=== PATIENT | male | born 1995 | race African-American/Black ===

== ENCOUNTER 2018-09-28 20:00 | Emergency (ER) | payer BC, SELFPAY ==
[2018-09-28] MEDS ORDERED: LIDOCAINE 1% MPF 5 ML VIAL ONE (21:17)
--- NOTE | 2018-09-28 22:16 | ER ---
Nurse's Notes [facility] Name: Bakari Delgado Age: 22 yrs Sex: Male : 1995 Arrival Date: 09/28/2018 Time: 20:24 Bed 11 Private MD: Diagnosis: Cutaneous abscess of face Presentation: 09/28 20:35 Presenting complaint: Patient states: he woke up with swelling to his left cheekbone bb this morning which is painful and getting worse. Transition of care: patient was not received from another setting of care. Onset of symptoms was September 28, 2018. Risk Assessment: Do you want to hurt yourself or someone else? Patient reports no desire to harm self or others. Initial Sepsis Screen: Does the patient meet any 2 criteria? No. Patient's initial sepsis screen is negative. Does the patient have a suspected source of infection? No. Patient's initial sepsis screen is negative. Care prior to arrival: None. 20:35 Method Of Arrival: Ambulatory bb 20:35 Acuity: CHATO 4 bb Historical: - Allergies: 20:36 Tree Nuts; bb 20:36 NKDA; bb - Home Meds: 20:36 None [Active]; bb - PMHx: 20:36 Asthma; bb - PSHx: 20:36 None; bb - Immunization history:: Adult Immunizations up to date. - Social history:: Smoking status: Patient uses tobacco products, smokes one-half pack cigarettes per day, Patient uses alcohol, occasionally. Patient/guardian denies using street drugs. - Ebola Screening: : No symptoms or risks identified at this time. Screenin:46 Abuse screen: Denies threats or abuse. Denies injuries from another. Nutritional rv screening: No deficits noted. Tuberculosis screening: No symptoms or risk factors identified. Fall Risk None identified. Assessment: 20:45 General: Appears in no apparent distress. comfortable, Behavior is calm, cooperative. rv Pain: Complains of pain in face. Neuro: Level of Consciousness is awake, alert, obeys commands, Oriented to person, place, time, situation. Cardiovascular: Capillary refill < 3 seconds. Respiratory: Airway is patent. GI: No signs and/or symptoms were reported involving the gastrointestinal system. : No signs and/or symptoms were reported regarding the genitourinary system. EENT: No signs and/or symptoms were reported regarding the EENT system. Derm: Skin is intact. Derm: Musculoskeletal: No signs and/or symptoms reported regarding the musculoskeletal system. Musculoskeletal: Swelling present in left congregational and left zygomatic area. Vital Signs: 20:36 BP 125 / 75; Pulse 83; Resp 16 S; Temp 98.9(O); Pulse Ox 98% on R/A; Weight 61.23 kg bb (R); Height 6 ft. 2 in. (187.96 cm) (R); Pain 5/10; 20:36 Body Mass Index 17.33 (61.23 kg, 187.96 cm) ED Course: 20:24 Patient arrived in ED. es 20:36 Triage completed. bb 20:36 Arm band placed on Patient placed in an exam room, on a stretcher, on pulse oximetry. bb 20:38 Heladio Lopez PA is PHCP. jr8 20:38 Abhishek Knox MD is Attending Physician. jr8 20:46 Patient has correct armband on for positive identification. Bed in low position. Call rv light in reach. Side rails up X 1. Pulse ox on. NIBP on. 22:12 No provider procedures requiring assistance completed. Assist provider with I \T\ D: of rv an abscess on left side of the face Set up I\T\D tray. Performed by Heladio HERNANDEZ Culture sent to lab. Dressing with 4X4s, tape Patient tolerated well. Patient did not have IV access during this emergency room visit. Administered Medications: No medications were administered Outcome: 22:15 Discharge ordered by . birdie 22:19 Discharged to home ambulatory. rv 22:19 Condition: good 22:19 Discharge instructions given to patient, family, Instructed on discharge instructions, follow up and referral plans. medication usage, wound care, Demonstrated understanding of instructions, follow-up care, medications, wound care, Prescriptions given X 1. 22:20 Patient left the ED. rv Signatures: Shauna Montoya Brenda, RN RN bb Heladio Lopez PA PA jr8 Natanael Villanueva RN RN rv
--- NOTE | 2018-09-28 22:16 | EDPHYS ---
Physician Documentation [facility] Name: Bakari Delgado Age: 22 yrs Sex: Male : 1995 Arrival Date: 09/28/2018 Time: 20:24 Bed 11 Private MD: ED Physician Abhishek Knox HPI: 09/28 22:02 This 22 yrs old Black Male presents to ER via Ambulatory with complaints of Facial jr8 swelling possible bite. 22:02 the patient presents with a swollen area of the left zygomatic area. Description: The jr8 affected area is small, localized, well demarcated, erythematous, pointed, swollen, tense. Onset: The symptoms/episode began/occurred acutely, today. Possible cause(s): unknown. Associated signs and symptoms: The patient has no apparent associated signs or symptoms. Modifying factors: the symptoms are alleviated by nothing, the symptoms are aggravated by pressure, squeezing the lesion and expressing the contents, touching. Severity of symptoms: At their worst the symptoms were mild, in the emergency department the symptoms are unchanged. The patient has not experienced similar symptoms in the past. The patient has not recently seen a physician. Historical: - Allergies: 20:36 Tree Nuts; bb 20:36 NKDA; bb - Home Meds: 20:36 None [Active]; bb - PMHx: 20:36 Asthma; bb - PSHx: 20:36 None; bb - Immunization history:: Adult Immunizations up to date. - Social history:: Smoking status: Patient uses tobacco products, smokes one-half pack cigarettes per day, Patient uses alcohol, occasionally. Patient/guardian denies using street drugs. - Ebola Screening: : No symptoms or risks identified at this time. ROS: 22:02 Eyes: Negative for injury, pain, redness, and discharge, ENT: Negative for injury, jr8 pain, and discharge, Neck: Negative for injury, pain, and swelling, Cardiovascular: Negative for chest pain, palpitations, and edema, Respiratory: Negative for shortness of breath, cough, wheezing, and pleuritic chest pain, Abdomen/GI: Negative for abdominal pain, nausea, vomiting, diarrhea, and constipation, Back: Negative for injury and pain, MS/Extremity: Negative for injury and deformity, Neuro: Negative for headache, weakness, numbness, tingling, and seizure. 22:02 Skin: Positive for abscess, of the left zygomatic area. Exam: 22:02 Head/Face: Normocephalic, atraumatic. Eyes: Pupils equal round and reactive to light, jr8 extra-ocular motions intact. Lids and lashes normal. Conjunctiva and sclera are non-icteric and not injected. Cornea within normal limits. Periorbital areas with no swelling, redness, or edema. ENT: Nares patent. No nasal discharge, no septal abnormalities noted. Tympanic membranes are normal and external auditory canals are clear. Oropharynx with no redness, swelling, or masses, exudates, or evidence of obstruction, uvula midline. Mucous membranes moist. Neck: Trachea midline, no thyromegaly or masses palpated, and no cervical lymphadenopathy. Supple, full range of motion without nuchal rigidity, or vertebral point tenderness. No Meningismus. Cardiovascular: Regular rate and rhythm with a normal S1 and S2. No gallops, murmurs, or rubs. Normal PMI, no JVD. No pulse deficits. Respiratory: Lungs have equal breath sounds bilaterally, clear to auscultation and percussion. No rales, rhonchi or wheezes noted. No increased work of breathing, no retractions or nasal flaring. Abdomen/GI: Soft, non-tender, with normal bowel sounds. No distension or tympany. No guarding or rebound. No evidence of tenderness throughout. Back: No spinal tenderness. No costovertebral tenderness. Full range of motion. MS/ Extremity: Pulses equal, no cyanosis. Neurovascular intact. Full, normal range of motion. Neuro: Awake and alert, GCS 15, oriented to person, place, time, and situation. Cranial nerves II-XII grossly intact. Motor strength 5/5 in all extremities. Sensory grossly intact. Cerebellar exam normal. Normal gait. 22:02 Skin: abscess, that is small, approximately 1.5 cm(s), of the left zygomatic area, with fluctuance, with pointing, cellulitis, is not appreciated. Vital Signs: 20:36 BP 125 / 75; Pulse 83; Resp 16 S; Temp 98.9(O); Pulse Ox 98% on R/A; Weight 61.23 kg bb (R); Height 6 ft. 2 in. (187.96 cm) (R); Pain 5/10; 20:36 Body Mass Index 17.33 (61.23 kg, 187.96 cm) bb Procedures: 22:02 I \T\ D: Incision and drainage was performed for an abscess of the left zygomatic area jr8 Prepped with Betadine, Anesthetized with 1 ml's 1% Lidocaine. Incised with #11 blade. Drained small amount purulent fluid. bloody fluid. Loculations removed. Cultures obtained. Abscess cavity explored. Packed with sterile gauze, Dressing: sterile 4x4 gauze, the patient tolerated the procedure well. MDM: 20:38 Patient medically screened. jr8 22:13 Data reviewed: vital signs, nurses notes, lab test result(s), and as a result, I will jr8 discharge patient. Data interpreted: Pulse oximetry: on room air is 98 %. Interpretation: normal. Counseling: I had a detailed discussion with the patient and/or guardian regarding: the historical points, exam findings, and any diagnostic results supporting the discharge/admit diagnosis, lab results, the need for outpatient follow up, a family practitioner, to return to the emergency department if symptoms worsen or persist or if there are any questions or concerns that arise at home. 09/28 22:07 Order name: Wound Culture jr8 09/28 21:03 Order name: I\T\D Setup; Complete Time: 21:04 jr8 Administered Medications: No medications were administered Disposition: 09/29 07:07 Co-signature as Attending Physician, Abhishek Knox MD I agree with the assessment and 4 plan of care. Disposition: 09/28/18 22:15 Discharged to Home. Impression: Cutaneous abscess of face. - Condition is Stable. - Discharge Instructions: Skin Abscess, Incision and Drainage. - Prescriptions for Bactrim DS 800- 160 mg Oral Tablet - take 1 tablet by ORAL route every 12 hours for 10 days; 20 tablet. - Medication Reconciliation Form, Thank You Letter, Antibiotic Education, Prescription Opioid Use form. - Follow up: Private Physician; When: 48 Hours; Reason: Wound Recheck, Recheck today's complaints, Continuance of care, Re-evaluation by your physician. - Problem is new. - Symptoms have improved. Signatures: Dispatcher [employer] EDSusy Prescott RN RN Heladio Rose PA PA 8 Abhishek Knox MD MD tw4 Natanael Villanueva, RN RN rv Corrections: (The following items were deleted from the chart) 09/28 22:20 22:15 09/28/2018 22:15 Discharged to Home. Impression: Cutaneous abscess of face. rv Condition is Stable. Forms are Medication Reconciliation Form, Thank You Letter, Antibiotic Education, Prescription Opioid Use. Follow up: Private Physician; When: 48 Hours; Reason: Wound Recheck, Recheck today's complaints, Continuance of care, Re-evaluation by your physician. Problem is new. Symptoms have improved. jr8
== END 2018-09-28 22:20 | disposition home or self-care (01) ==
LOC: ER 20:00
PROC: 0H91XZZ Drainage of Face Skin, External Approach (ICD-10-PCS; principal; 2018-09-28)
DX: L02.01 Cutaneous abscess of face (principal); J45.909 Unspecified asthma, uncomplicated; F17.210 Nicotine dependence, cigarettes, uncomplicated
CPT/HCPCS: 87070; 87205; 99284

== ENCOUNTER 2018-10-02 16:11 | Emergency (ER) | payer BC ==
--- NOTE | 2018-10-02 17:52 | ER ---
Nurse's Notes [facility] Name: Bakari Delgado Age: 22 yrs Sex: Male : 1995 Arrival Date: 10/02/2018 Time: 16:13 Bed 12 Private MD: Diagnosis: Encounter for wound check.;Left eye healing wound Presentation: 10/02 16:26 Presenting complaint: Patient states: i have an abscess on L side of the face which hj they had an incision last Monday; i just want to have a follow up check up; denies fever and chills; no discharges on the incision site; looks dry and intact;. Transition of care: patient was not received from another setting of care. Onset of symptoms was October 02, 2018. Risk Assessment: Do you want to hurt yourself or someone else? Patient reports no desire to harm self or others. Initial Sepsis Screen: Does the patient meet any 2 criteria? No. Patient's initial sepsis screen is negative. Does the patient have a suspected source of infection? No. Patient's initial sepsis screen is negative. Care prior to arrival: None. 16:26 Method Of Arrival: Ambulatory 16:26 Acuity: CHATO 4 hj Triage Assessment: 16:28 General: Appears in no apparent distress. uncomfortable, Behavior is calm, cooperative, hj appropriate for age. Pain: Denies pain. Historical: - Allergies: 16:28 NKDA; hj - Home Meds: 16:28 None [Active]; hj - PMHx: 16:28 Asthma; hj - PSHx: 16:28 None; hj - Immunization history:: Adult Immunizations up to date. - Social history:: Smoking status: Patient uses tobacco products, Patient uses alcohol. - Ebola Screening: : Patient negative for fever greater than or equal to 101.5 degrees Fahrenheit, and additional compatible Ebola Virus Disease symptoms Patient denies exposure to infectious person Patient denies travel to an Ebola-affected area in the 21 days before illness onset. Screenin:28 Abuse screen: Denies threats or abuse. Denies injuries from another. Nutritional hj screening: No deficits noted. Tuberculosis screening: No symptoms or risk factors identified. Fall Risk None identified. Assessment: 17:30 General: Appears in no apparent distress. Behavior is calm. Neuro: Level of iw Consciousness is awake, alert, obeys commands, Moves all extremities. Cardiovascular: Patient's skin is warm and dry. Respiratory: Respiratory effort is even, unlabored, Respiratory pattern is regular. Derm: Skin is intact, is healthy with good turgor. Musculoskeletal: Range of motion: intact in all extremities. Vital Signs: 16:29 BP 108 / 58; Pulse 99; Resp 18; Temp 97.5(O); Pulse Ox 98% on R/A; Weight 61.69 kg; hj Height 6 ft. 2 in. (187.96 cm); Pain 0/10; 16:29 Body Mass Index 17.46 (61.69 kg, 187.96 cm) ED Course: 16:13 Patient arrived in ED. as 16:28 Triage completed. hj 16:29 Arm band placed on right wrist. hj 16:29 Patient has correct armband on for positive identification. Bed in low position. Call hj light in reach. Side rails up X 1. 16:42 Sadie Lin RN is Primary Nurse. iw 16:43 Maurice Orr MD is Attending Physician. ps1 18:59 No provider procedures requiring assistance completed. Patient did not have IV access iw during this emergency room visit. Administered Medications: No medications were administered Outcome: 17:51 Discharge ordered by . ps1 17:59 Discharged to home ambulatory. iw 17:59 Condition: good 17:59 Discharge instructions given to patient, Instructed on discharge instructions, Demonstrated understanding of instructions. 18:00 Patient left the ED. iw Signatures: Nicki Erwin as Sadie Lin RN RN Doron Pagan RN RN Maurice Orr MD MD ps1 Corrections: (The following items were deleted from the chart) 16:31 16:29 Pulse 99bpm; Resp 18bpm; Pulse Ox 98% RA; Temp 97.5F Oral; 61.69 kg; Height 6 ft. hj 2 in.; BMI: 17.4; Pain 0/10; hj
--- NOTE | 2018-10-02 17:53 | EDPHYS ---
Physician Documentation [facility] Name: Bakari Delgado Age: 22 yrs Sex: Male : 1995 Arrival Date: 10/02/2018 Time: 16:13 Bed 12 Private MD: ED Physician Maurice Orr HPI: 10/02 17:49 This 22 yrs old Black Male presents to ER via Ambulatory with complaints of Abscess ps1 Recheck. 17:49 patient had left periorbital abscess that was treated with bactrim. Appears to be ps1 healing well without obvious signs of infection. Here for reevaluation. No fever. No purulent drainage. . Historical: - Allergies: 16:28 NKDA; hj - Home Meds: 16:28 None [Active]; hj - PMHx: 16:28 Asthma; hj - PSHx: 16:28 None; hj - Immunization history:: Adult Immunizations up to date. - Social history:: Smoking status: Patient uses tobacco products, Patient uses alcohol. - Ebola Screening: : Patient negative for fever greater than or equal to 101.5 degrees Fahrenheit, and additional compatible Ebola Virus Disease symptoms Patient denies exposure to infectious person Patient denies travel to an Ebola-affected area in the 21 days before illness onset. ROS: 17:49 Constitutional: Negative for fever, chills, and weight loss, Eyes: Negative for injury, ps1 pain, redness, and discharge, ENT: Negative for injury, pain, and discharge, Cardiovascular: Negative for chest pain, palpitations, and edema, Respiratory: Negative for shortness of breath, cough, wheezing, and pleuritic chest pain, Abdomen/GI: Negative for abdominal pain, nausea, vomiting, diarrhea, and constipation, MS/Extremity: Negative for injury and deformity, Skin: Negative for injury, rash, and discoloration, Neuro: Negative for headache, weakness, numbness, tingling, and seizure. Exam: 17:49 Constitutional: This is a well developed, well nourished patient who is awake, alert, ps1 and in no acute distress. Eyes: Pupils equal round and reactive to light, extra-ocular motions intact. Lids and lashes normal. Conjunctiva and sclera are non-icteric and not injected. ENT: Nares patent. No nasal discharge, no septal abnormalities noted. Tympanic membranes are normal and external auditory canals are clear. Oropharynx with no redness, swelling, or masses, exudates, or evidence of obstruction, uvula midline. Mucous membranes moist. Cardiovascular: Regular rate and rhythm. No gallops, murmurs, or rubs. Normal PMI, no JVD. No pulse deficits. Respiratory: Lungs have equal breath sounds bilaterally, clear to auscultation and percussion. No rales, rhonchi or wheezes noted. No increased work of breathing, no retractions or nasal flaring. Abdomen/GI: Soft, non-tender, with normal bowel sounds. No distension or tympany. No guarding or rebound. No evidence of tenderness throughout. Skin: Warm, dry with normal turgor. Normal color with no rashes, no lesions, and no evidence of cellulitis. MS/ Extremity: Pulses equal, no cyanosis. Neurovascular intact. Full, normal range of motion. Neuro: Awake and alert, GCS 15, oriented to person, place, time, and situation. Cranial nerves II-XII grossly intact. Sensory grossly intact. 17:49 Head/face: Exam is negative for abscess and signs of infections. Left eye abscess appears to be healing well. . Vital Signs: 16:29 BP 108 / 58; Pulse 99; Resp 18; Temp 97.5(O); Pulse Ox 98% on R/A; Weight 61.69 kg; hj Height 6 ft. 2 in. (187.96 cm); Pain 0/10; 16:29 Body Mass Index 17.46 (61.69 kg, 187.96 cm) hj MDM: 17:44 Patient medically screened. ps1 17:49 Data reviewed: vital signs, nurses notes, and as a result, I will discharge patient. ps1 Administered Medications: No medications were administered Disposition: 10/02/18 17:51 Discharged to Home. Impression: Encounter for wound check., Left eye healing wound. - Condition is Stable. - Discharge Instructions: Wound Care. - Work release form, Medication Reconciliation Form, Thank You Letter, Antibiotic Education, Prescription Opioid Use form. - Follow up: Private Physician; When: As needed; Reason: Continuance of care. Follow up: Emergency Department; When: As needed; Reason: Worsening of condition. - Problem is an ongoing problem. - Symptoms have improved. Signatures: Sadie Lin RN Doron Cooper RN Maurice Mello MD MD ps1 Corrections: (The following items were deleted from the chart) 18:00 17:51 10/02/2018 17:51 Discharged to Home. Impression: Encounter for wound check.; Left iw eye healing wound. Condition is Stable. Forms are Medication Reconciliation Form, Thank You Letter, Antibiotic Education, Prescription Opioid Use. Follow up: Private Physician; When: As needed; Reason: Continuance of care. Follow up: Emergency Department; When: As needed; Reason: Worsening of condition. Problem is an ongoing problem. Symptoms have improved. ps1
== END 2018-10-02 18:00 | disposition home or self-care (01) ==
LOC: ER 16:11
DX: H05.012 Cellulitis of left orbit (principal); J45.909 Unspecified asthma, uncomplicated; Z48.00 Encounter for change or removal of nonsurgical wound dressing
CPT/HCPCS: 99281

== ENCOUNTER 2018-11-16 10:54 | Emergency (ER) | payer BC ==
[2018-11-16 15:29] LABS: Absolute Lymphocytes (CBC) 1.5 K/uL (0.7-4.9); Absolute Monocytes 0.5 K/uL (0.1-1.3); Absolute Neutrophil 3.2 K/uL (1.8-8.0); Basophils % 0.6 % (0-1.3); Eosinophils % 3.1 % (0-4.4); Hematocrit 47.4 % (39.6-49.0); Lymphocytes % 27.5 % (15.3-44.8); MPV 8.3 fL (7.6-11.3); Monocytes % 8.9 % (3.3-12.3); RBC Red Blood Cell Count 5.28 M/uL (4.33-5.43)
[2018-11-16 15:46] LABS: ALT/SGPT 25 U/L (12-78); AST/SGOT 27 U/L (15-37); Albumin 4.2 g/dL (3.4-5.0); Alkaline Phosphatase 90 U/L (45-117); BUN Blood Urea Nitrogen 16 mg/dL (7-18); Bicarbonate 29 mmol/L (21-32); Bilirubin Direct 0.1 mg/dL (0-0.2); Bilirubin Total 0.5 mg/dL (0.2-1.0); Glucose Level 93 mg/dL (74-106); Lipase 140 U/L (73-393); Potassium 4.5 mmol/L (3.5-5.1); Sodium Level 138 mmol/L (136-145)
--- NOTE | 2018-11-16 15:59 | EDPHYS ---
Physician Documentation [facility] Name: Bakari Delgado Age: 23 yrs Sex: Male : 1995 Arrival Date: 11/16/2018 Time: 10:59 Bed 19 Private MD: ED Physician Lionel Luciano HPI: 11/16 18:58 This 23 yrs old Black Male presents to ER via Ambulatory with complaints of Diarrhea, kdr Fever. 18:58 The patient presents to the emergency department with nausea, diarrhea, that is kdr intermittent, abdominal pain, of the abdomen diffusely, described as achy, crampy, intermittent, and does not radiate. Onset: The symptoms/episode began/occurred gradually, 1 week(s) ago. The symptoms are aggravated by food , The symptoms are alleviated by nothing. Associated signs and symptoms: Pertinent positives: abdominal pain, diarrhea, nausea. Severity of symptoms: At their worst the symptoms were mild in the emergency department the symptoms have improved mildly. The patient has experienced similar episodes in the past, multiple times. The patient has not recently seen a physician. Historical: - Allergies: 11:19 Tree Nuts; tw2 - Home Meds: 11:19 None [Active]; tw2 - PMHx: 11:19 Asthma; tw2 - PSHx: 11:19 None; tw2 - Immunization history:: Adult Immunizations up to date. - Social history:: Smoking status: Patient uses tobacco products, smokes one-half pack cigarettes per day, Patient uses alcohol, on a daily basis. "a beer a day". - Ebola Screening: : Patient denies travel to an Ebola-affected area in the 21 days before illness onset. ROS: 18:58 Constitutional: Negative for fever, chills, and weight loss, Eyes: Negative for injury, kdr pain, redness, and discharge, ENT: Negative for injury, pain, and discharge, Neck: Negative for injury, pain, and swelling, Respiratory: Negative for shortness of breath, cough, wheezing, and pleuritic chest pain, Abdomen/GI: Negative for abdominal pain, nausea, vomiting, diarrhea, and constipation, Back: Negative for injury and pain, : Negative for injury, bleeding, discharge, and swelling, MS/Extremity: Negative for injury and deformity, Skin: Negative for injury, rash, and discoloration, Psych: Negative for depression, anxiety, suicide ideation, homicidal ideation, and hallucinations, Allergy/Immunology: Negative for hives, rash, and allergies, Endocrine: Negative for neck swelling, polydipsia, polyuria, polyphagia, and marked weight changes, Hematologic/Lymphatic: Negative for swollen nodes, abnormal bleeding, and unusual bruising. 18:58 Cardiovascular: Positive for chest pain, Negative for edema, orthopnea, palpitations. 18:58 Neuro: Positive for headache, weakness. Exam: 18:58 Constitutional: This is a well developed, well nourished patient who is awake, alert, kdr and in no acute distress. Head/Face: Normocephalic, atraumatic. Eyes: Pupils equal round and reactive to light, extra-ocular motions intact. Lids and lashes normal. Conjunctiva and sclera are non-icteric and not injected. Cornea within normal limits. Periorbital areas with no swelling, redness, or edema. Neck: Trachea midline, no thyromegaly or masses palpated, and no cervical lymphadenopathy. Supple, full range of motion without nuchal rigidity, or vertebral point tenderness. No Meningismus. Chest/axilla: Normal chest wall appearance and motion. Nontender with no deformity. No lesions are appreciated. Cardiovascular: Regular rate and rhythm with a normal S1 and S2. No gallops, murmurs, or rubs. Normal PMI, no JVD. No pulse deficits. Respiratory: Lungs have equal breath sounds bilaterally, clear to auscultation and percussion. No rales, rhonchi or wheezes noted. No increased work of breathing, no retractions or nasal flaring. Abdomen/GI: Soft, non-tender, with normal bowel sounds. No distension or tympany. No guarding or rebound. No evidence of tenderness throughout. Back: No spinal tenderness. No costovertebral tenderness. Full range of motion. Skin: Warm, dry with normal turgor. Normal color with no rashes, no lesions, and no evidence of cellulitis. MS/ Extremity: Pulses equal, no cyanosis. Neurovascular intact. Full, normal range of motion. Neuro: Awake and alert, GCS 15, oriented to person, place, time, and situation. Cranial nerves II-XII grossly intact. Motor strength 5/5 in all extremities. Sensory grossly intact. Cerebellar exam normal. Normal gait. Psych: Awake, alert, with orientation to person, place and time. Behavior, mood, and affect are within normal limits. Vital Signs: 11:19 BP 144 / 77; Pulse 98; Resp 17; Temp 98.0(TE); Pulse Ox 100% on R/A; Weight 58.97 kg tw2 (R); Height 6 ft. 0 in. (182.88 cm); Pain 7/10; 14:20 BP 135 / 74; Pulse 86; Resp 18; Pulse Ox 100% on R/A; em 11:19 Body Mass Index 17.63 (58.97 kg, 182.88 cm) tw2 MDM: 15:59 Patient medically screened. kdr 18:58 Data reviewed: vital signs, nurses notes, lab test result(s), radiologic studies. kdr Counseling: I had a detailed discussion with the patient and/or guardian regarding: the historical points, exam findings, and any diagnostic results supporting the discharge/admit diagnosis, lab results, radiology results, the need for outpatient follow up. Special discussion: Based on the patient's Hx, exam, and Dx evaluation, there is no indication for emergent surgery or inpatient Tx. It is understood by the patient/guardian that if the Sx's persist or worsen they need to return immediately for re-evaluation. I discussed with the patient/guardian in detail that at this point there is no indication for admission to the hospital. It is understood, however, that if the symptoms persist or worsen the patient needs to return immediately for re-evaluation. 11/16 14:10 Order name: Basic Metabolic Panel [facility] 11/16 14:10 Order name: CBC with Diff [facility] 11/16 14:10 Order name: Creatinine for Radiology; Complete Time: 15:54 [facility] 11/16 14:10 Order name: Hepatic Function; Complete Time: 15:54 [facility] 11/16 14:10 Order name: Lipase; Complete Time: 15:54 [facility] 11/16 14:11 Order name: Basic Metabolic Panel; Complete Time: 15:54 [facility] 11/16 14:10 Order name: IV Saline Lock; Complete Time: 15:05 [facility] 11/16 14:10 Order name: Labs collected and sent; Complete Time: 15:05 [facility] 11/16 14:11 Order name: CBC with Automated Diff; Complete Time: 15:54 EDMS Administered Medications: 16:26 Drug: Flagyl 500 mg Route: PO; em 16:38 Follow up: Response: No adverse reaction em 16:26 Drug: Cipro 500 mg Route: PO; em 16:38 Follow up: Response: No adverse reaction em Disposition: 11/16/18 15:59 Discharged to Home. Impression: Enteritis, Diarrhea, unspecified. - Condition is Stable. - Discharge Instructions: Diarrhea, Adult, [id number]. - Prescriptions for Flagyl 500 mg Oral Tablet - take 1 tablet by ORAL route every 6 hours for 10 days; 40 tablet. Zofran 4 mg Oral Tablet - take 1 tablet by ORAL route every 12 hours As needed; 6 tablet. Cipro 500 mg Oral Tablet - take 1 tablet by ORAL route every 12 hours for 7 days; 14 tablet. Lomotil 2.5- 0.025 mg Oral Tablet - take 2 tablet by ORAL route once daily As needed; 20 tablet. - Medication Reconciliation Form, Thank You Letter, Antibiotic Education, Work release form form. - Follow up: Private Physician; When: 2 - 3 days; Reason: If symptoms return, Further diagnostic work-up, Recheck today's complaints, Continuance of care, Re-evaluation by your physician. - Problem is an ongoing problem. - Symptoms have improved. Signatures: Dispatcher [employer] EDAZ Lionel Luciano MD MD kdr Munoz, Edgar, MANAGER EQUIPMENT MANAGER EQUIPMENT em Kalli Kendall RN RN tw2 Corrections: (The following items were deleted from the chart) 16:39 15:59 11/16/2018 15:59 Discharged to Home. Impression: Enteritis; Diarrhea, em unspecified. Condition is Stable. Forms are Medication Reconciliation Form, Thank You Letter, Antibiotic Education, Prescription Opioid Use. Follow up: Private Physician; When: 2 - 3 days; Reason: If symptoms return, Further diagnostic work-up, Recheck today's complaints, Continuance of care, Re-evaluation by your physician. Problem is an ongoing problem. Symptoms have improved. kdr
--- NOTE | 2018-11-16 15:59 | ER ---
Nurse's Notes [facility] Name: Bakari Delgado Age: 23 yrs Sex: Male : 1995 Arrival Date: 11/16/2018 Time: 10:59 Bed 19 Private MD: Diagnosis: Enteritis;Diarrhea, unspecified Presentation: 11/16 11:18 Presenting complaint: Patient states: i have been having diarrhea since last week, tw2 nauseous, i have wheezing and i am coughing a lot. Transition of care: patient was not received from another setting of care. Onset of symptoms was November 16, 2018. Risk Assessment: Do you want to hurt yourself or someone else? Patient reports no desire to harm self or others. Initial Sepsis Screen: Does the patient meet any 2 criteria? HR > 90 bpm. No. Patient's initial sepsis screen is negative. Does the patient have a suspected source of infection? No. Patient's initial sepsis screen is negative. Care prior to arrival: None. 11:18 Method Of Arrival: Ambulatory tw2 11:18 Acuity: CHATO 3 tw2 Triage Assessment: 11:20 General: Appears in no apparent distress. slender, Behavior is calm, cooperative, tw2 appropriate for age. Pain: Complains of pain in abdomen. GI: Reports lower abdominal pain, upper abdominal pain, diarrhea, nausea, Patient currently denies intolerance of fluids, intolerance of food, vomiting. Historical: - Allergies: 11:19 Tree Nuts; tw2 - Home Meds: 11:19 None [Active]; tw2 - PMHx: 11:19 Asthma; tw2 - PSHx: 11:19 None; tw2 - Immunization history:: Adult Immunizations up to date. - Social history:: Smoking status: Patient uses tobacco products, smokes one-half pack cigarettes per day, Patient uses alcohol, on a daily basis. "a beer a day". - Ebola Screening: : Patient denies travel to an Ebola-affected area in the 21 days before illness onset. Screenin:25 Abuse screen: Denies threats or abuse. Nutritional screening: No deficits noted. em Tuberculosis screening: No symptoms or risk factors identified. Fall Risk None identified. Assessment: 14:20 General: Appears in no apparent distress. comfortable, Behavior is calm, cooperative, em Denies fever. Pain: Complains of pain in abdomen Pain currently is 7 out of 10 on a pain scale. Neuro: Level of Consciousness is awake, alert, obeys commands, Oriented to person, place, time, situation. Cardiovascular: Capillary refill < 3 seconds Patient's skin is warm and dry. Respiratory: Airway is patent Respiratory effort is even, unlabored, Respiratory pattern is regular, symmetrical. GI: Abdomen is flat, Bowel sounds present X 4 quads. Reports lower abdominal pain, diarrhea, Patient currently denies nausea, vomiting. Derm: Skin is intact, is healthy with good turgor, Skin is pink, warm \\T\\ dry. Musculoskeletal: Capillary refill < 3 seconds, Range of motion: intact in all extremities. 14:35 Reassessment: I agree with previous assessment. hb 16:28 Reassessment: Patient appears in no apparent distress at this time. Patient and/or em family updated on plan of care and expected duration. Pain level reassessed. Patient is alert, oriented x 3, equal unlabored respirations, skin warm/dry/pink. Vital Signs: 11:19 BP 144 / 77; Pulse 98; Resp 17; Temp 98.0(TE); Pulse Ox 100% on R/A; Weight 58.97 kg tw2 (R); Height 6 ft. 0 in. (182.88 cm); Pain 7/10; 14:20 BP 135 / 74; Pulse 86; Resp 18; Pulse Ox 100% on R/A; em 11:19 Body Mass Index 17.63 (58.97 kg, 182.88 cm) tw2 ED Course: 10:59 Patient arrived in ED. mr 11:18 Triage completed. tw2 11:20 Arm band placed on. tw2 14:10 Lionel Luciano MD is Attending Physician. kdr 14:21 Obed Qureshi LVN is Primary Nurse. em 14:25 Patient has correct armband on for positive identification. Placed in gown. Bed in low em position. Pulse ox on. NIBP on. 15:00 Initial lab(s) drawn, by me, sent to lab. Inserted saline lock: 20 gauge in right em antecubital area, using aseptic technique. Blood collected. 16:36 No provider procedures requiring assistance completed. IV discontinued, intact, em bleeding controlled, No redness/swelling at site. Pressure dressing applied. Administered Medications: 16:26 Drug: Flagyl 500 mg Route: PO; em 16:38 Follow up: Response: No adverse reaction em 16:26 Drug: Cipro 500 mg Route: PO; em 16:38 Follow up: Response: No adverse reaction em Outcome: 15:59 Discharge ordered by . kdr 16:36 Discharged to home ambulatory. em 16:36 Condition: good 16:36 Condition: good 16:36 Discharge instructions given to patient, Instructed on discharge instructions, follow up and referral plans. medication usage, Demonstrated understanding of instructions, follow-up care, medications, Prescriptions given X 4. 16:39 Patient left the ED. em Signatures: Lionel Luciano MD MD kdr Rivera, Mary mr Obed Qureshi, SCIENTIST PROPAGATOR SCIENTIST PROPAGATOR em Michelle Bravo, RN RN Kalli Kendall RN RN tw2
[2018-11-16] MEDS ORDERED: metroNIDAZOLE 500 MG TABLET ONE (16:35)
[2018-11-16] MEDS ORDERED: CIPROFLOXACIN HCL 500 MG TAB ONE (16:36)
== END 2018-11-16 16:39 | disposition home or self-care (01) ==
LOC: ER 10:54
DX: K52.9 Noninfective gastroenteritis and colitis, unspecified (principal); J45.909 Unspecified asthma, uncomplicated; F17.210 Nicotine dependence, cigarettes, uncomplicated
CPT/HCPCS: 36415; 80048; 80076; 83690; 85025; 99284